=== PATIENT | female | born 1980 | race Hispanic/Latino ===

== ENCOUNTER 2016-07-14 11:26 | Emergency (ER) | payer SELFPAY ==
--- NOTE | 2016-07-14 11:50 | Emergency Department Report ---
Chief Complaint: Medical Clearance Stated Complaint: POSS DROUG OVERDOSE Time Seen by Provider: 07/14/16 11:45 - HPI History of Present Illness: 36-year-old female comes in for complaint of chest pain diaphoretic and feels like she is burning up. It was reported that this patient took a bag of white substance that is unknown. Noted in triage heart rate is 190 but pressures 155/93. Boyfriend feels that the white substance was 2 g of cocaine. - Exam Vital Signs: Vital Signs 07/14/16 11:34 Temperature 98.5 F Pulse Rate 192 H Respiratory 26 H Rate Blood Pressure 155/93 O2 Sat by Pulse 98 Oximetry Physical Exam: Patient's alert shaking very diaphoretic and very tachycardic. Tachypnea eyes closed respiratory clear to auscultation MSE screening note: Focused history and physical exam performed. Due to findings the following was ordered: EKG chest pain protocol as well as a cardiac MB ordered, urine informed charge nurse Demetra the patient's status. Patient will be evaluated in the main ER ED Disposition for MSE Condition: Stable
[2016-07-14] MEDS ORDERED: VALIUM ONE (12:11)
[2016-07-14] MEDS ORDERED: VALIUM IV ONE ×4 (12:18→15:55)
[2016-07-14] MEDS ORDERED: NACL 0.9% 1000 ML 1,000 ML ONE ×3 (12:22→13:37)
--- NOTE | 2016-07-14 12:25 | Emergency Department Report ---
ED General Adult HPI - General Chief complaint: Medical Clearance Stated complaint: POSS DROUG OVERDOSE Time Seen by Provider: 07/14/16 11:45 Source: patient Mode of arrival: Wheelchair Limitations: Physical Limitation - History of Present Illness Initial comments: this is a 36 y/o female previously unknown to me. she reports a history of chronic back pain. she is brought to the hospital by a friend. As per patient and friend, at or around 10:00 AM the patient ingested a couple of white substance, and a possible baggie. The patient reported that she consume the substances on a dare. She was not trying to hurt herself or kill herself. A friend with her thinks that it was crystal meth but is not sure. The patient has not fallen. There is no trauma. She is brought to the hospital for chills, weakness, total body pain. Symptoms are constant since 10:00. They have no exacerbating factors. They have no relieving factors. -: hour(s) Consistency: constant Improves with: none Worsens with: none Associated Symptoms: chest pain, diaphoresis, fever/chills, loss of appetite, weakness - Related Data Home Medications Medication Instructions Recorded Confirmed Last Taken ALPRAZolam [Xanax TAB] 2 mg PO BID PRN 07/14/16 07/14/16 Unknown Oxycodone HCl [Roxicodone TAB] 30 mg PO QID 07/14/16 07/14/16 07/14/16 10:00 Allergies Allergy/AdvReac Type Severity Reaction Status Date / Time No Known Allergies Allergy Unverified 07/14/16 11:32 ED Review of Systems ROS: Stated complaint: POSS DROUG OVERDOSE Other details as noted in HPI Constitutional: chills, weakness. denies: fever Eyes: denies: eye discharge ENT: denies: epistaxis Respiratory: denies: cough Cardiovascular: denies: chest pain Gastrointestinal: nausea. denies: abdominal pain Genitourinary: denies: urgency Musculoskeletal: arthralgia, myalgia Skin: denies: lesions Neurological: weakness Psychiatric: anxiety. denies: homicidal thoughts, suicidal thoughts ED Past Medical Hx - Past Medical History Additional medical history: CHRONIC BACK PAIN - Surgical History Hx Appendectomy: Yes Additional Surgical History: . LEEP - Social History Smoking Status: Current Every Day Smoker Substance Use Type: Marijuana, Prescribed - Medications Home Medications: Home Medications Medication Instructions Recorded Confirmed Last Taken Type ALPRAZolam [Xanax TAB] 2 mg PO BID PRN 07/14/16 07/14/16 Unknown History Oxycodone HCl [Roxicodone TAB] 30 mg PO QID 07/14/16 07/14/16 07/14/16 10:00 History ED Physical Exam - General Limitations: Physical Limitation General appearance: alert, in distress, other (patient actively shivering, appears markedly distressed, diaphoretic) - Head Head exam: Present: atraumatic, normocephalic - Eye Eye exam: Present: normal appearance - ENT ENT exam: Present: normal exam, normal orophraynx, mucous membranes dry - Neck Neck exam: Present: normal inspection, full ROM. Absent: tenderness, meningismus - Respiratory Respiratory exam: Present: normal lung sounds bilaterally. Absent: respiratory distress, wheezes, rales, rhonchi, stridor, chest wall tenderness - Cardiovascular Cardiovascular Exam: Present: normal rhythm, tachycardia, normal heart sounds. Absent: systolic murmur, diastolic murmur, rubs, gallop - GI/Abdominal GI/Abdominal exam: Present: soft, normal bowel sounds. Absent: distended, tenderness, guarding, rebound, rigid, pulsatile mass - Extremities Exam Extremities exam: Present: normal inspection, full ROM, normal capillary refill , other (2+ pulses in 4 extremities. The compartments are soft.). Absent: tenderness, pedal edema, joint swelling, calf tenderness - Back Exam Back exam: Present: normal inspection - Neurological Exam Neurological exam: Present: alert, other ( reallyExtraocular movements intact. Tongue midline. No facial droop. Facial sensation intact to light touch in the V1, V2, V3 distribution bilaterally. 5 and 5 strength in 4 extremities.. Sensation is intact to light touch in 4 extremities.). Absent: motor sensory deficit - Psychiatric Psychiatric exam: Present: anxious. Absent: homicidal ideation, suicidal ideation - Skin Skin exam: Present: warm, dry, intact, normal color. Absent: rash ED Course Vital Signs 07/14/16 07/14/16 07/14/16 11:34 12:36 12:45 Temperature 98.5 F Pulse Rate 192 H 125 H 129 H Respiratory 26 H 19 20 Rate Blood Pressure 155/93 130/77 O2 Sat by Pulse 98 99 100 Oximetry 07/14/16 07/14/16 07/14/16 12:47 12:50 13:00 Temperature 98.6 F Pulse Rate 125 H 133 H Respiratory 23 24 13 Rate Blood Pressure 130/77 133/67 O2 Sat by Pulse 100 100 100 Oximetry 07/14/16 07/14/16 07/14/16 13:37 13:47 13:48 Temperature Pulse Rate 130 H 126 H 134 H Respiratory 22 19 Rate Blood Pressure 137/85 133/73 139/89 O2 Sat by Pulse 99 99 Oximetry 07/14/16 07/14/16 07/14/16 13:57 14:00 14:23 Temperature Pulse Rate 127 H 124 H 125 H Respiratory 24 19 17 Rate Blood Pressure 133/67 129/73 128/78 O2 Sat by Pulse 99 99 97 Oximetry 07/14/16 07/14/16 07/14/16 14:30 15:00 15:03 Temperature Pulse Rate 125 H 119 H 124 H Respiratory 19 19 10 L Rate Blood Pressure 128/63 127/75 127/75 O2 Sat by Pulse 99 99 97 Oximetry 07/14/16 07/14/16 07/14/16 15:30 16:00 16:15 Temperature Pulse Rate 120 H 123 H 120 H Respiratory 16 22 19 Rate Blood Pressure 122/64 124/61 139/63 O2 Sat by Pulse 100 90 83 L Oximetry 07/14/16 07/14/16 07/14/16 16:30 17:00 17:07 Temperature Pulse Rate 117 H 115 H 115 H Respiratory 18 29 H 16 Rate Blood Pressure 116/67 127/84 127/84 O2 Sat by Pulse 97 85 100 Oximetry 07/14/16 07/14/16 07/14/16 17:30 18:00 18:31 Temperature Pulse Rate 130 H 134 H 127 H Respiratory 16 20 14 Rate Blood Pressure 127/74 146/75 132/77 O2 Sat by Pulse 99 98 99 Oximetry 07/14/16 07/14/16 07/14/16 19:00 19:11 19:18 Temperature Pulse Rate 130 H 128 H Respiratory 11 L 14 12 Rate Blood Pressure 134/75 134/76 O2 Sat by Pulse 99 98 Oximetry 07/14/16 07/14/16 07/14/16 19:30 20:13 20:31 Temperature Pulse Rate 126 H 126 H 118 H Respiratory 16 13 11 L Rate Blood Pressure 142/79 132/82 97/79 O2 Sat by Pulse 98 99 99 Oximetry 07/14/16 21:00 Temperature Pulse Rate 120 H Respiratory 15 Rate Blood Pressure 126/76 O2 Sat by Pulse 99 Oximetry - Reevaluation(s) Reevaluation #1: 07/14/16 12:24 Differential diagnosis: Toxic ingestion, sympathomimetic toxicity, rhabdomyolysis, electrolyte imbalance Assessment and plan: 36-year-old female status post ingestion of white substance approximately 2-1/2 hours prior to arrival. She is tachycardic shivering, most likely is sympathomimetic be intoxicated. She does not meet 1013 criteria. Laboratory studies, rectal temperature, chest x-ray and abdominal x-ray pending. Charcoal candidate as ingestion happened more than 60 minutes prior to arrival. We'll treat her aggressively with IV fluids and benzodiazepines. Reevaluation #2: 07/14/16 12:30 She feels improved after 10 mg of diazepam. Heart rate now in the 130s. Blood pressure is 139. Repeat dose ordered. Repeat EKG ordered. Reevaluation #3: 07/14/16 13:02 patient feeling improved. Heart rate in the 130s. Additional dose of diazepam ordered. Reevaluation #4: 07/14/16 13:37 Has received 30 mg of diazepam IV. She feels improved, but she is still markedly tachycardic. Lactic acidosis is noted. Urine toxicology screen indicates multiple agents. Patient to be admitted for IV fluids, airway monitoring, arrhythmia monitoring. Case is discussed with the Hospital physician, , who accepts the patient to his service. Given the magnitude of the patient's abnormal vital signs, and the benzodiazepine requirements, I don' t believe that she is suitable for outpatient management at this time. Reevaluation #5: 07/14/16 15:56 Repeat lactic acid improved. Patient still very tremulous and tachycardic. She reports that she feels like she is withdrawing. She was originally given clonidine. Additional diazepam is ordered. ED Medical Decision Making - Lab Data Result diagrams: 07/14/16 12:02 07/14/16 12:02 Vital Signs 07/14/16 11:34 Temperature 98.5 F Pulse Rate 192 H Respiratory 26 H Rate Blood Pressure 155/93 O2 Sat by Pulse 98 Oximetry - EKG Data When compared to previous EKG there are: previous EKG unavailable 07/14/16 12:25 Sinus tachycardia, 177 bpm, QTC 470 ms, motion artifact, abnormal EKG, not morphologically consistent with STEMI. EKG #2 demonstrates sinus tachycardia, 128 beats minute, QTC 461 ms, not consistent with STEMI. 07/14/16 13:14 - Radiology Data Radiology results: report reviewed, image reviewed xr chest abd pelvis neg Critical care attestation.: If time is entered above; I have spent that time in minutes in the direct care of this critically ill patient, excluding procedure time. 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
[2016-07-14] MEDS: NACL 0.9% 500 ML IV SCH ×2 (12:42→13:47)
[2016-07-14 12:44] LABS: Urine Drugs of Abuse Note Disclamer
[2016-07-14 12:47] LABS: Basophils % (Auto) 0.1 % (0.0-1.8); Eosinophils % (Auto) 3.6 % (0.0-4.3); Hematocrit 40.1 % (30.3-42.9); Mean Corpuscular HGB Conc 35 % (30-34); Mean Corpuscular Hemoglobin 31 pg (28-32); Mean Corpuscular Volume 90 fl (79-97); Platelet Count 244 K/mm3 (140-440); Red Blood Count 4.48 M/mm3 (3.65-5.03); Red Cell Distribution Width 12.7 % (13.2-15.2); White Blood Count 11.8 K/mm3 (4.5-11.0)
[2016-07-14 12:53] LABS: Anion Gap 25 mmol/L; Blood Urea Nitrogen 11 mg/dL (7-17); Calcium 9.6 mg/dL (8.4-10.2); Carbon Dioxide 19 mmol/L (22-30); Chloride 102.5 mmol/L (98-107); Glucose 141 mg/dL (65-100); Sodium 142 mmol/L (137-145)
[2016-07-14 12:56] LABS: Creatine Kinase MB 1.6 ng/mL (0.0-4.0)
--- NOTE | 2016-07-14 13:36 | XRay Report ---
ABDOMINAL SERIES THREE VIEWS: 07/14/16 11:26:00 CLINICAL: Indigestion. FINDINGS: Supine and upright views demonstrate a normal bowel gas pattern with a large volume of stool in the colon. No distended small bowel and no air-fluid levels. No pneumoperitoneum. No mass or suspicious calcifications. The chest is normal. The bones and soft tissues are normal. IMPRESSION: Negative abdomen with abundant stool.
[2016-07-14] MEDS ORDERED: CATAPRES ONE (13:43)
[2016-07-14] MEDS ORDERED: CATAPRES PO ONE (13:44)
[2016-07-14] MEDS ORDERED: VALIUM IV STA (14:18)
[2016-07-14] MEDS ORDERED: DILAUDID ONE (18:01)
[2016-07-14] MEDS ORDERED: DILAUDID IV ONE (18:08)
[2016-07-14] MEDS ORDERED: ROXICODONE PO PRN (18:13)
[2016-07-14] MEDS ORDERED: MOTRIN PO ONE ×2 (19:46→19:47)
[2016-07-14 21:09] VITALS: BP 126/76
== END 2016-07-15 | disposition admitted as inpatient to this hospital (09) ==
LOC: ED 11:26 → UNDOADMIN 14:21 → 3A 14:21 → ED 07-15
DX: E87.2 Acidosis (principal); F15.129 Other stimulant abuse with intoxication, unspecified; F17.200 Nicotine dependence, unspecified, uncomplicated; F12.90 Cannabis use, unspecified, uncomplicated; G89.29 Other chronic pain
CPT/HCPCS: 36415; 74022; 80048; 80307; 82140; 82550; 82553; 82962; 84484; 84702; 85025; 93005; 93010; 96361; 96374; 96375; 96376; 99284; G0480; J1170; J3360; J7030; 80320